=== PATIENT | male | born 1980 | race Caucasian/White ===

== ENCOUNTER 2020-09-10 12:20 | Outpatient (CLI) | payer OTHER, SELFPAY | END 2020-09-10 23:59 | disposition home or self-care (01) | LOC: MLB 12:20 → EDSTATUS 09-18 13:20 | PROVIDERS: ATTEND Internal Medicine Gastroenterology | DX: Z01.812 Encounter for preprocedural laboratory examination (principal); Z20.828 Contact with and (suspected) exposure to other viral communicable diseases | CPT/HCPCS: U0003 ==